=== PATIENT | female | born 2000 | race African-American/Black ===

== ENCOUNTER 2022-05-28 17:21 | Emergency (ER) | payer BC, SELFPAY ==
--- NOTE | ~2022-05-28 | CT_ITS ---
EXAMINATION: CT abdomen pelvis w con DATE: 05/29/2022 03:10 INDICATION: Low abdominal pain. TECHNIQUE: Computed tomography (CT) of the abdomen and pelvis was performed with 100 mL Omnipaque 350 intravenous contrast. Automated exposure control and iterative reconstruction technique were employe d. The dose-length product was 170.82 mGy-cm. COMPARISON: None. FINDINGS: The visualized portions of the lung bases demonstrate minimal atelectasis. No pleural effus ion. The heart size is normal. No pericardial effusion. The liver, gallbladder, spleen, pancreas, adr enal glands, and kidneys are normal. There is a 6.0 cm cyst in the right adnexa. There are no dilated loops of bowel. The appendix is not visualized. There are no pathologically enlarged lymph nodes. Th ere is physiologic fluid in the pelvis. There is thoracolumbar levocurvature. IMPRESSION: 1. 6.0 cm cyst in right adnexa, probably benign. Ovarian torsion is not excluded. Pelvis ultrasound i s recommended. Reviewed, dictated and finalized at location A. IMPRESSION: 1. 6.0 cm cyst in right adnexa, probably benign. Ovarian torsion is not exclude d. Pelvis ultrasound is recommended.
--- NOTE | ~2022-05-28 | US_ITS ---
CORRECTED REPORT EXAMINATION DESCRIPTION CORRECTED. 05/29/2022 stephanie This report was recreated on 05/29/2022. Original report was EXAMINATION: US pelvic complete DATE: 05/29/2022 06:24 INDICATION: Pelvic pain. TECHNIQUE: Multiple transabdominal sonographic images of the pelvis were obtained. The patient refused transvaginal imaging. COMPARISON: CT abdomen and pelvis 05/29/2022 FINDINGS: The uterus measures 6.3 x 5.5 x 3.1 cm. There is no free fluid in the pelvis. The endometrial complex measures 11 mm in thickness. The right ovary measures 5.3 x 6.5 x 7.6 cm. There is a 6.8 cm mass with cystic component, fluid/fluid level, and hypoechoic component. There is vascular flow in the right ovary. The left ovary is not visualized. IMPRESSION: 1. 6.8 cm mass in right ovary, which may be a hemorrhagic cyst. Pelvis ultrasound is recommended in 6-12 weeks. Reviewed, dictated and finalized at location A. MTDD IMPRESSION: 1. 6.8 cm mass in right ovary, which may be a hemorrhagic cyst. Pelvis ultrasou nd is recommended in 6-12 weeks.
[2022-05-28 20:02] LABS: Appearance Urine Clear (Clear); Bilirubin Urine Negative (Negative); Blood Urine Negative (Negative); Color Urine Yellow (Yellow); Glucose Urine UA Negative (Negative); Ketones Urine Trace mg/dL (Negative); Leukocyte Esterase Ur Negative LEU/UL (Negative); Nitrate Urine Negative (Negative); Protein Urine Negative (Negative); Specific Grav Ur 1.026 (1.001-1.035); Urobilinogen Urine 0.2 mg/dL (<2.0)
[2022-05-28 20:06] LABS: Add Urine Microscopic? NO
[2022-05-28 22:21] VITALS: BP 119/84; PULSE 69; RESP 16; TEMP 37.3; O2SAT 100
[2022-05-29 02:13] LABS: Basophils Absolute Auto 0.1 K/mm3 (0.0-0.1); Basophils Percent Auto 0.8 % (0.2-1.2); Eosinophils Absolute Auto 0.1 K/mm3 (0-0.3); Eosinophils Percent Auto 1.7 % (0-4.4); Hemoglobin 12.5 g/dL (12.0-15.0); Immature Granulocyte Absolute 0.01 K/mm3 (0.00-0.031); Immature Granulocyte Percent A 0.2 % (0-0.5); Lymphocytes Absolute Auto 3.28 K/mm3 (0.9-3.2); Lymphocytes Percent Auto 51.3 % (18.3-44.2); Mean Corpuscular HGB Conc 33.8 g/dl (32-36); Mean Corpuscular Hemoglobin 30.6 pg (26-34); Mean Corpuscular Volume 90.7 fl (80-100); Mean Platelet Volume 8.7 fl (7.4-10.4); Monocytes Absolute Auto 0.5 K/mm3 (0.1-0.6); Monocytes Percent Auto 8.5 % (2.6-8.5); Neutrophils Absolute Auto 2.4 K/mm3 (1.3-6.7); Neutrophils Percent Auto 37.5 % (45.5-73.1); Platelet Count Result 339 k/mm3 (150-375); Red Blood Count 4.08 M/mm3 (4.2-5.4); Red Cell Distribution Width 12.1 % (11.5-14.5); White Blood Count 6.4 K/mm3 (4.5-10.0)
[2022-05-29 02:24] LABS: Alanine Aminotransferase 24 U/L (6-35); Albumin Level 4.3 g/dL (3.5-5.1); Alkaline Phosphatase 59 U/L (38-126); Anion Gap 8 mmol/L (8-16); Aspartate Amino Transferase 34 U/L (14-36); Bilirubin,Total 0.3 mg/dL (0.2-1.3); Blood Urea Nitrogen 12 mg/dL (7-17); Calcium 8.9 mg/dL (8.4-10.2); Carbon Dioxide 26 mmol/L (22-30); Chloride 105 mmol/L (98-107); Estimated Glomerular Filt Rate > 60; Glucose 85 mg/dL (65-110); Lipase 146 U/L (23-300); Potassium 3.7 mmol/L (3.4-5.0); Sodium 139 mmol/L (137-145)
--- NOTE | 2022-05-29 02:37 | ED.ABDPAIN ---
HPI - Abdominal Pain General Chief Complaint: Abdominal Pain <Kelly Brooks PA-C - Last Filed: 05/30/22 14:17> Stated Complaint: abd pain <Kelly Brooks PA-C - Last Filed: 05/30/22 14:17> Time Seen by Provider: 05/29/22 02:17 <Kelly Brooks PA-C - Last Filed: 05/30/22 14:17> History of Present Illness HPI narrative: 22 y/o F w/o medical history, LMP 3/4, reports for suprapubic and LLQ abdominal cramping x2 weeks. Pt reports the there is a constant dull ache in her suprapubic region, but then she gets sharp intermittent pains that get better when she passes gas. She denies urinary complaints, back pain, CP, SOB, n/v/d. She reports last BM yesterday was normal. She reports having BM every 1-2 days. <Kelly Brooks PA-C - Last Filed: 05/30/22 14:17> Related Data Allergies/Adverse Reactions: Allergies Allergy/AdvReac Type Severity Reaction Status Date / Time No Known Allergies Allergy Verified 05/29/22 03:13 <Kelly Brooks PA-C - Last Filed: 05/30/22 14:17> Review of Systems Review of Systems: CONSTITUTIONAL: Denies fever, chills. EYES: Denies visual changes, redness, or discharge. ENT: Denies rhinorrhea, congestion, sore throat, or otalgia. CARDIOVASCULAR: Denies chest pain, palpitations, or edema. RESPIRATORY: Denies cough or dyspnea. GASTROINTESTINAL: See HPI GENITOURINARY: Denies dysuria or hematuria. SKIN: Denies rash or itching. MUSCULOSKELETAL: Denies back pain, joint pain, or myalgia. NEUROLOGIC: Denies headache, numbness, dizziness, or weakness. PSYCHIATRIC: Denies anxiety or depression. <Kelly Brooks PA-C - Last Filed: 05/30/22 14:17> Exam Narrative: GENERAL: Well-appearing, well-nourished, and in no acute distress. Patient resting comfortably in the exam bed. She is pleasant and conversational. HEAD: Normocephalic, atraumatic. EYES: PERRLA and EOMI. ENT: Nares clear, no rhinorrhea or epistaxis. Mucous membranes moist. Oropharynx without tonsillar hypertrophy exudate or other lesions. NECK: Supple. No adenopathy or masses. CHEST: Clear to auscultation. No respiratory distress. No wheezes rales or rhonchi HEART: Regular rate and rhythm. No murmur heard. Normal peripheral pulses. ABDOMEN: Soft, nondistended, normal active bowel sounds. Tenderness with palpation to the suprapubic region. No appendiceal signs, negative Medina's. No guarding or rigidity. No CVA tenderness bilaterally. : No rashes, lesions to external genitalia, vaginal canal, cervix. There is scant amount of white discharge in the vaginal vault. Closed cervical os. No CMT. EXTREMITIES: Normal range of motion. No edema. SKIN: Warm, dry, no rash. NEURO: No focal deficits. Alert and oriented x3. PSYCH: Normal mood and affect. <Kelly Brooks PA-C - Last Filed: 05/30/22 14:17> Course Course Emergency Course: Offered empiric STD treatment, patient declines. She reports she is not concerned for STDs and will wait for test results. <Kelly Brooks PA-C - Last Filed: 05/30/22 14:17> [employer]PA Physician Supervision This visit was performed by both the physician and an APC. I performed all aspects of the MDM as documented <Christiano Pierce MD - Last Filed: 05/30/22 07:12> Vital Signs Vital signs: Vital Signs Temperature 99.2 F 05/28/22 22:21 Pulse Rate 69 05/28/22 22:21 Respiratory Rate 16 05/28/22 22:21 Blood Pressure 119/84 05/28/22 22:21 Pulse Oximetry 100 05/28/22 22:21 Temperature 99.2 F 05/28/22 22:21 Pulse Rate 71 05/29/22 05:54 Respiratory Rate 16 05/29/22 05:54 Blood Pressure 105/76 05/29/22 05:54 Pulse Oximetry 100 05/29/22 05:54 <Kelly Brooks PA-C - Last Filed: 05/30/22 14:17> Vital Signs Temperature 99.2 F 05/28/22 22:21 Pulse Rate 69 05/28/22 22:21 Respiratory Rate 16 05/28/22 22:21 Blood Pressure 119/84 05/28/22 22:21 Pulse Oximetry 100 05/28/22 22:21 [place]
[2022-05-29] MEDS: KETOROLAC 30 MG/ML VIAL (*BKC) 15 MG IV PUSH (02:52)
[2022-05-29] MEDS: SODIUM CHLORIDE 0.9% IV 1,000 ML 999 ML IV CONT (02:53)
[2022-05-29] MEDS: DICYCLOMINE HCL 10 MG CAPSULE 20 MG PO (03:14)
[2022-05-29 03:15] VITALS: BP 112/84; PULSE 54; RESP 16; O2SAT 98
[2022-05-29 03:19] LABS: Lactic Acid Reflex 0.7 mmol/L (0.7-2.0)
[2022-05-29 05:54] VITALS: BP 105/76; PULSE 71; RESP 16; O2SAT 100
== END 2022-05-29 07:22 | disposition home or self-care (01) ==
PROVIDERS: Emergency Medicine; Physician Assistant; Emergency Provider Emergency Medicine; PCP Emergency Medicine
DX: N83.201 Unspecified ovarian cyst, right side (principal); R10.84 Generalized abdominal pain
CPT/HCPCS: 36415; 74177; 76830; 76856; 80053; 81003; 81025; 83605; 83690; 85025; 87070; 87491; 87591; 87808; 96361; 96374; 99284; A9270; J1885; J7030; Q9967